=== PATIENT | female | born 1960 | race Caucasian/White ===

== ENCOUNTER 2023-07-05 12:19 | Outpatient (CLI) | payer MEDICARE, SELFPAY ==
--- NOTE | ~2023-07-05 | XR_ITS ---
Clinical Indication: Status post fall, hypertension PA and lateral views of the chest: Comparison: None Findings: The lungs are clear, without evidence of focal consolidation or pleural effusion. Cardiome diastinal silhouette is within normal limits. Right shoulder arthroplasty noted. Right sixth rib frac ture noted, somewhat age indeterminate. Impression: Right sixth rib fracture, age-indeterminate. Correlate for point tenderness. Clear lungs. Reviewed, dictated and finalized at location . K GRADER Impression: Right sixth rib fracture, age-indeterminate. Correlate for point tenderness. Clear lungs.
--- NOTE | ~2023-07-05 | XR_ITS ---
EXAM: XR knee RT 3V DATE: 07/05/2023 13:04 HISTORY: Fall X 1 month, all over knee pain . COMPARISON: None available. FINDINGS: Decreased mineralization. No fracture or dislocation. No lytic or blastic lesion. Uncompli cated appearing right knee arthroplasty. Tibial anchor likely from remote ACL repair. No erosion or p eriosteal change. Soft tissues within normal limits. IMPRESSION: No acute osseous finding in the right knee. Reviewed, dictated and finalized at location K. GER LIGHTING
--- NOTE | ~2023-07-05 | XR_ITS ---
EXAM: XR shoulder RT min 2V DATE: 07/05/2023 13:05 HISTORY: Fall X 1 month, all over shoulder pain . COMPARISON: None available. FINDINGS: Uncomplicated right shoulder arthroplasty hardware Normal mineralization. No fracture or di slocation. No lytic or blastic lesion. Joint spaces are maintained. No erosion or periosteal change. Soft tissues within normal limits. IMPRESSION: No acute osseous finding in the right shoulder. No radiographic evidence of hardware-rela miguel complication. Reviewed, dictated and finalized at location K. RINE OPERATOR IMPRESSION: No acute osseous finding in the right shoulder. No radiographic wilver dence of hardware-related complication.
== END 2023-07-05 12:20 | disposition home or self-care (01) ==
PROVIDERS: PCP Family Medicine; Visit Provider Family Medicine
DX: R07.89 Other chest pain (principal); M25.569 Pain in unspecified knee; M25.511 Pain in right shoulder; S22.31XA Fracture of one rib, right side, initial encounter for closed fracture
CPT/HCPCS: 71046; 73030; 73562